=== PATIENT | male | born 1955 | race Caucasian/White ===

== ENCOUNTER → 2018-06-08 | Outpatient (CLI) | payer MEDICARE, MEDICAID ==
[~2018-06-08] MED LIST: ALBU18HF INH; ATOR40TA78 PO; CBD oil TP; FLUO40CA9 PO; FURO20TA3 PO; KETO15CR2 TP; LEVO75TA5 PO; LOSA100T7 PO; METO25TA35 PO; MUPI22OI2 TP; PRAS10TA4 PO; SPIR25TA5 PO
[2018-06-08 16:14] LABS: BASOPHILS # (AUTO) 0.09 x10^3/uL (0-0.1); BASOPHILS % (AUTO) 1 % (0-1); EOSINOPHILS # (AUTO) 0.35 x10^3/uL (0-0.4); EOSINOPHILS % (AUTO) 4 % (1-7); LYMPHOCYTES # (AUTO) 2.41 x10^3/uL (1-3.4); LYMPHOCYTES % (AUTO) 26 % (22-44); MD NO; MEAN CORPUSCULAR HEMOGLOBIN 32.6 pg (27.5-34.5); MEAN CORPUSCULAR HGB CONC 34.5 g/dL (33.2-36.2); MEAN CORPUSCULAR VOLUME 94.4 fL (81-97); MEAN PLATELET VOLUME 6.9 fL (7.4-10.4); MONOCYTES # (AUTO) 0.83 x10^3/uL (0.2-0.8); MONOCYTES % (AUTO) 9 % (2-9); NEUTROPHILS # (AUTO) 5.67 x10^3/uL (1.8-6.8); NEUTROPHILS % (AUTO) 61 % (42-75); PLATELET COUNT 278 x10^3/uL (130-400); RED BLOOD COUNT 4.47 x10^6/uL (4.38-5.82); RED CELL DISTRIBUTION WIDTH 13.6 % (9.4-14.8)
[2018-06-08 16:19] LABS: ALANINE AMINOTRANSFERASE 24 U/L (12-78); ALBUMIN 3.3 g/dL (3.4-5.0); ANION GAP 7 mmol/L (5-15); CHLORIDE 102 mmol/L (98-107); CREATININE 0.76 mg/dL (0.7-1.3)
[2018-06-08 16:22] LABS: ALKALINE PHOSPHATASE 87 U/L (45-117); BILIRUBIN,TOTAL 0.6 mg/dL (0.2-1.0); TOTAL PROTEIN 7.4 g/dL (6.4-8.2)
== END | disposition home or self-care (01) ==
LOC: STAR 14:50
PROVIDERS: ATTEND Orthopaedic Surgery
DX: Z01.818 Encounter for other preprocedural examination (principal); M16.0 Bilateral primary osteoarthritis of hip
CPT/HCPCS: 36415; 80053; 85025; 87081; 93005

== ENCOUNTER → 2018-07-25 | Outpatient (CLI) | payer MEDICARE, MEDICAID ==
[~2018-07-25] MED LIST changes: +REGADENOSON 0.4 MG/5 ML SYRINGE ONE
== END | disposition home or self-care (01) ==
LOC: CFH 12:51
PROVIDERS: ATTEND Internal Medicine Cardiovascular Disease
DX: Z01.818 Encounter for other preprocedural examination (principal); I34.0 Nonrheumatic mitral (valve) insufficiency; I35.8 Other nonrheumatic aortic valve disorders; I10 Essential (primary) hypertension; E11.9 Type 2 diabetes mellitus without complications; Z87.891 Personal history of nicotine dependence
CPT/HCPCS: 78452; 93017; 93306; A9502; J2785

== ENCOUNTER → 2019-03-22 | Outpatient (CLI) | payer MEDICARE, MEDICAID ==
[~2019-03-22] MED LIST changes: +ACET-1600 PO; +ASPI325T17 PO; +CHLO1TAB26 PO; +DOCU100T3 PO; +FLAX10004 PO; +HYDR25TA6 PO; +KETO15CR17 TP; -KETO15CR2 TP; +LOSA100T14 PO; -LOSA100T7 PO; +PSYL1POW PO; -REGADENOSON 0.4 MG/5 ML SYRINGE ONE
[2019-03-22 16:16] LABS: BASOPHILS # (AUTO) 0.06 x10^3/uL (0-0.1); BASOPHILS % (AUTO) 1 % (0-1); EOSINOPHILS # (AUTO) 0.37 x10^3/uL (0-0.4); EOSINOPHILS % (AUTO) 4 % (1-7); LYMPHOCYTES # (AUTO) 2.64 x10^3/uL (1-3.4); LYMPHOCYTES % (AUTO) 26 % (22-44); MD NO; MEAN CORPUSCULAR HEMOGLOBIN 32.6 pg (27.5-34.5); MEAN CORPUSCULAR HGB CONC 33.7 g/dL (33.2-36.2); MEAN CORPUSCULAR VOLUME 96.5 fL (81-97); MEAN PLATELET VOLUME 6.6 fL (7.4-10.4); MONOCYTES # (AUTO) 0.93 x10^3/uL (0.2-0.8); MONOCYTES % (AUTO) 9 % (2-9); NEUTROPHILS # (AUTO) 6.01 x10^3/uL (1.8-6.8); NEUTROPHILS % (AUTO) 60 % (42-75); PLATELET COUNT 313 x10^3/uL (130-400); RED BLOOD COUNT 4.37 x10^6/uL (4.38-5.82); RED CELL DISTRIBUTION WIDTH 13.7 % (9.4-14.8)
[2019-03-22 16:26] LABS: ALANINE AMINOTRANSFERASE 23 U/L (12-78); ALBUMIN 3.7 g/dL (3.4-5.0); ANION GAP 6 mmol/L (5-15); CALCIUM 9.2 mg/dL (8.5-10.1); CHLORIDE 98 mmol/L (98-107); CREATININE 1.03 mg/dL (0.7-1.3)
[2019-03-22 16:28] LABS: ALKALINE PHOSPHATASE 82 U/L (45-117); BILIRUBIN,TOTAL 0.9 mg/dL (0.2-1.0); TOTAL PROTEIN 7.5 g/dL (6.4-8.2)
== END | disposition home or self-care (01) ==
LOC: STAR 15:14
PROVIDERS: ATTEND Orthopaedic Surgery
DX: Z01.818 Encounter for other preprocedural examination (principal); M16.11 Unilateral primary osteoarthritis, right hip
CPT/HCPCS: 36415; 80053; 85025; 87081; 93005

== ENCOUNTER 2019-10-29 07:32 | Outpatient (CLI) | payer MEDICARE, MEDICAID ==
[~2019-10-29 07:32] MED LIST changes: +REGADENOSON 0.4 MG/5 ML SYRINGE ONE
[2019-10-29] MEDS ORDERED: REGADENOSON 0.4 MG/5 ML SYRINGE ONE (09:18)
== END 2019-10-29 23:59 | disposition home or self-care (01) ==
LOC: CFH 07:32
PROVIDERS: ATTEND Internal Medicine Cardiovascular Disease
DX: Z01.810 Encounter for preprocedural cardiovascular examination (principal); R07.9 Chest pain, unspecified
CPT/HCPCS: 78452; 93017; A9502; J2785

== ENCOUNTER → 2020-07-16 | Outpatient (CLI) | payer MEDICARE, MEDICAID ==
[~2020-07-16] MED LIST changes: -REGADENOSON 0.4 MG/5 ML SYRINGE ONE
== END | disposition home or self-care (01) ==
LOC: CVU 15:40
PROVIDERS: ATTEND Internal Medicine Cardiovascular Disease
DX: I08.3 Combined rheumatic disorders of mitral, aortic and tricuspid valves (principal); I10 Essential (primary) hypertension; I42.9 Cardiomyopathy, unspecified
CPT/HCPCS: 93306

== ENCOUNTER → 2020-11-10 | Outpatient (CLI) | payer MEDICARE, MEDICAID ==
[~2020-11-10] MED LIST changes: +REGADENOSON 0.4 MG/5 ML SYRINGE ONE
== END | disposition home or self-care (01) ==
LOC: CFH 12:32
PROVIDERS: ATTEND Internal Medicine Cardiovascular Disease
DX: Z01.810 Encounter for preprocedural cardiovascular examination (principal); I21.19 ST elevation (STEMI) myocardial infarction involving other coronary artery of inferior wall; R07.9 Chest pain, unspecified
CPT/HCPCS: 78452; 93017; A9502; J2785

== ENCOUNTER 2021-02-18 08:20 | Observation (INO) | payer MEDICARE, MEDICAID ==
[~2021-02-18] VITALS: Ht 172.7 cm; Wt 111.6 kg
[~2021-02-18 08:20] MED LIST changes: -REGADENOSON 0.4 MG/5 ML SYRINGE ONE
[2021-02-18] MEDS ORDERED: METF500T17 PO (09:23)
[2021-02-18] MEDS ORDERED: HYDR25TA6 PO (09:23)
[2021-02-18] MEDS ORDERED: LOSA100T14 PO (09:23)
[2021-02-18] MEDS ORDERED: FLUT12AE INH (09:23)
[2021-02-18] MEDS ORDERED: LABE100T6 PO (09:23)
[2021-02-18] MEDS ORDERED: TIOT4MIS3 INH (09:23)
[2021-02-18 09:40] VITALS: BP 168/95
[2021-02-18 10:09] LABS: BASOPHILS % (AUTO) 1 % (0-1); EOSINOPHILS % (AUTO) 3 % (1-7); LYMPHOCYTES % (AUTO) 26 % (22-44); MEAN CORPUSCULAR HEMOGLOBIN 32.7 pg (27.5-34.5); MEAN CORPUSCULAR HGB CONC 34.3 g/dL (33.2-36.2); MEAN PLATELET VOLUME 6.9 fL (7.4-10.4); MONOCYTES % (AUTO) 11 % (2-9); NEUTROPHILS % (AUTO) 59 % (42-75); PLATELET COUNT 294 x10^3/uL (130-400); RED CELL DISTRIBUTION WIDTH 14.1 % (9.4-14.8)
[2021-02-18 10:18] LABS: MD NO
[2021-02-18 10:19] LABS: ANION GAP 6 mmol/L (5-15); CHLORIDE 100 mmol/L (98-107); CREATININE 1.03 mg/dL (0.7-1.3)
[2021-02-18] MEDS ORDERED: MIDAZOLAM 1 MG/ML, 5ML ONE (10:41)
[2021-02-18] MEDS ORDERED: LIDOCAINE-MPF 1%, 5ML ONE (10:42)
[2021-02-18] MEDS ORDERED: FENTANYL PF 100 MCG/2ML ONE ×2 (10:42→14:02)
[2021-02-18] MEDS ORDERED: VERAPAMIL 2.5 MG/ML, 2ML ONE (10:42)
[2021-02-18] MEDS ORDERED: TICAGRELOR 90 MG TABLET ONE (10:42)
[2021-02-18] MEDS ORDERED: HEPARIN 1,000 UNITS/ML, 10ML ONE (10:42)
[2021-02-18] MEDS ORDERED: BIVALIRUDIN 250 MG ONE (10:42)
[2021-02-18] MEDS ORDERED: LIDOCAINE 1%, 20ML ONE (10:44)
[2021-02-18] MEDS ORDERED: hydrALAzine 20 MG/ML, 1ML ONE ×2 (11:18→15:24)
[2021-02-18] MEDS ORDERED: hydrALAzine 20 MG/ML, 1ML IV ONE ×2 (12:30→15:30)
[2021-02-18] MEDS ORDERED: MORPHINE SULFATE 4 MG/ML, 1ML IVPush PRN (12:30)
[2021-02-18] MEDS ORDERED: MORPHINE SULFATE 4 MG/ML, 1ML ONE (12:37)
[2021-02-18] MEDS ORDERED: FENTANYL PF 100 MCG/2ML IVPush ONE ×2 (14:30→16:00)
[2021-02-18] MEDS ORDERED: FENTANYL PF 100 MCG/2ML IVPush PRN (15:00)
[2021-02-18] MEDS ORDERED: NITROGLYCERIN 0.4 MG BOTTLE (25 TABS) SL PRN (16:00)
[2021-02-18] MEDS ORDERED: NITROGLYCERIN 0.4 MG/SPRAY SL PRN (16:00)
[2021-02-18] MEDS ORDERED: LABETALOL 100 MG TABLET ONE (17:08)
[2021-02-18] MEDS: LABETALOL 100 MG TABLET PO SCH (17:10)
[2021-02-18 19:10] VITALS: BP 180/87
[2021-02-18] MEDS ORDERED: LABETALOL 5MG/ML, 20ML IVPush PRN (20:00)
[2021-02-18 21:00] VITALS: BP 166/81
[2021-02-18] MEDS: DOCUSATE 100 MG CAPSULE PO SCH (21:00)
[2021-02-18] MEDS ORDERED: ATORVASTATIN 40 MG TABLET PO SCH (21:00)
[2021-02-19 01:39] VITALS: BP 148/86
[2021-02-19 07:43] VITALS: BP 175/85
[2021-02-19] MEDS: DOCUSATE 100 MG CAPSULE PO SCH (08:03)
[2021-02-19] MEDS: LABETALOL 100 MG TABLET PO SCH (08:04)
[2021-02-19 08:21] VITALS: BP 156/87
[2021-02-19] MEDS ORDERED: HYDROCHLOROTHIAZIDE 25 MG TABLET PO SCH (09:00)
[2021-02-19] MEDS ORDERED: (Tiotropium Br/Olodaterol HCl (Stiolto Respimat Inhal Spray) 2 INH SCH (09:00)
[2021-02-19] MEDS ORDERED: FLUOXETINE HCL 20 MG CAPSULE PO SCH (09:00)
[2021-02-19] MEDS ORDERED: ACETAMINOPHEN 500 MG TABLET PO SCH (09:00)
[2021-02-19] MEDS ORDERED: ASPIRIN 325 MG TABLET PO SCH (09:00)
[2021-02-19] MEDS ORDERED: LOSARTAN 100 MG TAB PO SCH (09:00)
[2021-02-19] MEDS ORDERED: LEVOTHYROXINE 75 MCG TABLET PO SCH (09:00)
== END 2021-02-19 10:55 | disposition home or self-care (01) ==
LOC: CACL 08:20 → ORIP 15:35 → 5SO 16:56 → DCLOUNGE 02-19 10:46
PROVIDERS: ADMIT Internal Medicine Cardiovascular Disease; ATTEND Internal Medicine Cardiovascular Disease
DX: I42.9 Cardiomyopathy, unspecified (principal); I25.10 Atherosclerotic heart disease of native coronary artery without angina pectoris; R07.89 Other chest pain; I10 Essential (primary) hypertension; J44.9 Chronic obstructive pulmonary disease, unspecified; E11.9 Type 2 diabetes mellitus without complications; F10.10 Alcohol abuse, uncomplicated; F12.10 Cannabis abuse, uncomplicated; Z87.891 Personal history of nicotine dependence; Z79.899 Other long term (current) drug therapy
CPT/HCPCS: 36415; 80048; 82962; 85025; 93458; 96374; 96375; 96376; 99156; C1760; C1769; C1894; G0378; J0360; J2250; J2270; J3010; J3490; Q9967; J0583; J1644